=== PATIENT | female | born 1955 | race Caucasian/White ===

== ENCOUNTER → 2016-11-25 | Outpatient (CLI) | payer BC ==
--- NOTE | 2016-11-26 11:41 | CT ---
EXAM DESCRIPTION: Abdomen/Pelvis w/wo Contrast CT scan. CLINICAL HISTORY: HEMATURIA COMPARISON: None. TECHNIQUE: Spiral-axial scans at 5.0 mm intervals through the abdomen and pelvis before and after standard dose nonionic IV contrast. Coronal and sagittal 2.0 mm reconstructions. Delayed 5 mm axial helical scans, liver through the pubic symphysis. No adverse reactions. Total Exam DLP 2294.51 mGy - cm. This exam was performed according to our departmental CT dose-optimization program which includes automated exposure control, adjustment of the mA and/or kV according to patient size and/or use of iterative reconstruction technique; to reduce radiation dose to as low as reasonably achievable (ALARA). FINDINGS: Kidneys and Ureters: No radiodense stones, hydronephrosis, perinephric fluid. No radiodense stones in the ureters or periureteral edema. 3 cm cyst in the posterior upper pole of the right kidney Mesentery: No free intraperitoneal air or ascites. No mesenteric stranding or fascial thickening. Lung bases and pleura: Minimal bibasilar scarring. No pleural effusion. Liver, Stomach, Spleen, Adrenal Glands: Craniocaudal dimension of the right lobe 22 cm. Normal density. No focal lesions. 1.2 cm focal enlargement in the left adrenal gland with precontrast density +18.4 HU, immediate postcontrast density +60.2 HU, and delayed postcontrast density +39.3 HU. No calcifications. Pancreas, Gallbladder, Ducts: Gallbladder is visualized. Heterogeneous density of the pancreas with normal enhancement. Aorta: Minimal atherosclerotic calcification distally and also in the bilateral common iliac arteries. Small Bowel: Normal caliber. Terminal Ileum/Cecum: Normal caliber. Appendix contains fluid and gas not distended. Normal density of the surrounding fat. Colon: Nondistended. Scattered diverticula in the descending colon. Pelvic Organs: No radiodense stones in the urinary bladder. Uterus retroflexed. Bilateral calcifications. Small ovaries. No fluid in the cul-de-sac. Spine and Bony Pelvis: Spondylosis L4-5 and foraminal narrowing. Lumbar lordosis T9-T12. Striated appearance of the marrow in T10 vertebral body suggestive of hemangioma. No compression. No bone destruction. Minimal degenerative changes in the pubic symphysis. Minimal degenerative changes in the bilateral acetabula. Abdominal Wall/Back Soft Tissues: Anterior bulging of the midline abdominal wall with diastases at the umbilicus but no definite hernia. IMPRESSION: 1. No obstructing or radiodense stones in the bilateral kidneys ureters or in the urinary bladder. No hydronephrosis or perirenal fluid. 3 cm cyst in the right kidney. Uterus is retroflexed. 2. Focal enlargement or mass in the left adrenal gland. Most likely adenoma, with almost 50% contrast washout in five minutes. Consider MRI scan if suspect adrenal pathology. 3. Hepatomegaly of the liver. Normal density and enhancement. No focal lesions. 4. Lumbar and thoracic spondylosis. Probable hemangioma T10 vertebral body with no evidence of compression fracture. Degenerative changes in the acetabula. 5. Minimal diverticulosis of the colon with no evidence of complications. Electronically signed by: Blayne Dean MD 11/26/2016 11:40 AM CDT
== END ==
LOC: CT 08:14
PROVIDERS: ATTEND Family Medicine
DX: R31.9 Hematuria, unspecified (principal); N28.1 Cyst of kidney, acquired; R16.0 Hepatomegaly, not elsewhere classified; M47.894 Other spondylosis, thoracic region; M47.896 Other spondylosis, lumbar region; K57.30 Diverticulosis of large intestine without perforation or abscess without bleeding